=== PATIENT | female | born 1945 | race Caucasian/White ===

== ENCOUNTER → 2023-06-23 | Outpatient (CLI) | payer OTHER | END | disposition home or self-care (01) | LOC: EDSTATUS 10:00 → RAH 10:12 | PROVIDERS: ATTEND Family Medicine | DX: Z78.0 Asymptomatic menopausal state (principal) | CPT/HCPCS: 77080 ==

== ENCOUNTER → 2025-05-11 | Outpatient (CLI) | payer OTHER ==
--- NOTE | 2025-05-11 16:10 | HMCIMG ---
DEXA BONE DENSITY SURVEY HISTORY: Menopause COMPARISON: None FINDINGS: Bone densitometry study was performed. Bone mineral density of the lumbar spine is 0.907 gram per centimeter square which corresponds to a T score of -1.3 and a Z score of 1.5. Bone mineral density of the left hip is 0.745 grams per centimeter square which corresponds to a T score of -1.6 and a Z score of 0.6. IMPRESSION: 1. Osteopenia of the lumbar spine and left hip.
== END | disposition home or self-care (01) ==
LOC: RAH 14:14
PROVIDERS: ATTEND Family Medicine
DX: Z13.820 Encounter for screening for osteoporosis (principal); M85.89 Other specified disorders of bone density and structure, multiple sites; Z78.0 Asymptomatic menopausal state
CPT/HCPCS: 77080

== ENCOUNTER → 2025-05-30 | Outpatient (CLI) | payer OTHER ==
--- NOTE | 2025-05-31 05:15 | HMCIMG ---
EXAM: CT Abdomen and Pelvis without IV contrast. CLINICAL HISTORY: Splenic nodule, renal calculi, renal cyst. TECHNIQUE: Thin collimated axial CT images of the abdomen and pelvis were obtained with sagittal and coronal reformatted images also submitted. CT scan done according to ALARA (As Low As Reasonably Achievable). CONTRAST: None. COMPARISON: None. FINDINGS: Unremarkable visualized lung parenchyma. There is no focal abnormality appreciated within the pancreas or adrenals. The liver is normal in size, shape and density. Subcentimeter hypodense cyst and a calcified granuloma in segment IV of the left lobe of the liver. Post-cholecystectomy status with mildly dilated common bile duct measuring up to 0.9 cm. Bilateral kidneys are normal in size, shape and density. There is a 4.4 x 4.3 cm hypodense cyst at the mid-pole of the left kidney. No renal, ureteric or bladder calculi. There is a subcentimeter calcified nodule in the spleen. There is no obvious bowel wall thickening. Bowel loops are normal in caliber without evidence of obstruction or ileus. The appendix is normal. There is severe fecal loading of the large bowel loops. There is no abnormality within the urinary bladder. Status post hysterectomy and bilateral salpingo-oophorectomy. Mild calcific atheromatous plaques in the abdominal aorta. No significant lymphadenopathy. No free fluid. There is no acute osseous abnormality. Mild degenerative osseous changes. Multiple calcified subcutaneous nodules in the bilateral gluteal regions, likely injection site granulomas. IMPRESSION: 1. 4.4 cm left renal mid-pole cyst. 2. Mildly dilated common bile duct up to 0.9 cm, post-cholecystectomy status. 3. Subcentimeter hepatic cyst and calcified granuloma in segment IV of the left lobe. 4. Severe constipation with impacted fecal matter. 5. Subcentimeter calcified splenic nodule. 6. Multiple calcified subcutaneous nodules in bilateral gluteal regions, likely injection site granulomas. 7. Post-hysterectomy and bilateral salpingo-oophorectomy status. /[place]
== END | disposition home or self-care (01) ==
LOC: RAH 13:23
PROVIDERS: ATTEND Family Medicine
DX: N28.1 Cyst of kidney, acquired (principal); N20.0 Calculus of kidney; K75.3 Granulomatous hepatitis, not elsewhere classified; K59.00 Constipation, unspecified; D73.89 Other diseases of spleen; K76.89 Other specified diseases of liver; R19.5 Other fecal abnormalities; I70.0 Atherosclerosis of aorta; M47.819 Spondylosis without myelopathy or radiculopathy, site unspecified; M62.89 Other specified disorders of muscle; Z90.710 Acquired absence of both cervix and uterus; Z90.722 Acquired absence of ovaries, bilateral
CPT/HCPCS: 74176